=== PATIENT | male | born 1990 | race Caucasian/White ===

== ENCOUNTER 2018-01-24 20:08 | Emergency (ER) | payer SELFPAY ==
[2018-01-24] MEDS: DIPHTH/TET/ACEL PERTUSS (ADULT) 0.5 ML VIAL IM* (21:47)
== END 2018-01-24 22:12 | disposition home or self-care (01) ==
LOC: FTE 20:08
DX: R21 Rash and other nonspecific skin eruption (principal); Z23 Encounter for immunization
CPT/HCPCS: 90471; 90715; 99283-25